=== PATIENT | female | born 1985 | race African-American/Black ===

== ENCOUNTER 2016-08-30 20:48 | Observation (INO) | payer MEDICAID, OTHER ==
[~2016-08-30] VITALS: Ht 165.1 cm; Wt 104.3 kg
[2016-08-30 22:50] LABS: Urine Bilirubin Negative (Negative); Urine Blood Negative /uL (Negative); Urine Color Yellow (Yellow); Urine Glucose Normal (Normal); Urine Ketone Negative (Negative); Urine Nitrite Negative (Negative); Urine RBC <1 /hpf (0 - 4); Urine Squamous Epithelial Cell FEW /hpf (<5); Urine Urobilinogen Normal (Negative); Urine pH 5.5 (5.0-8.0)
[2016-08-30 22:51] LABS: Basophils # (auto) 0 uL; Basophils % (auto) 0.2 % (0.0-2.0); Eosinophils # (auto) 0.3 uL; Eosinophils % (auto) 4.4 % (0.0-7.0); Hematocrit 33.5 % (36.0-46.0); Hemoglobin 11.2 g/dL (12.2-16.2); Lymphocytes # (auto) 2.1 uL; Lymphocytes % (auto) 30.8 % (10.0-50.0); Mean Corpuscular Hemoglobin 28.9 pg (28.0-32.0); Mean Corpuscular Hgb Conc. 33.5 g/dL (32.0-36.0); Mean Corpuscular Volume 86.2 fL (80.0-100.0); Monocytes # (auto) 0.5 uL; Monocytes % (auto) 7.2 % (0.0-12.0); Neutrophils # (auto) 3.9 uL; Neutrophils % (auto) 57.4 % (37.0-80.0); Red Cell Distribution Width 15.8 % (11.6-16.0); White Blood Cell 6.7 10^3/uL (4.4-10.8)
[2016-08-30 22:55] LABS: Partial Thromboplastin Time 26.1 sec (22.64-33.71); Prothrombin Time 10.3 sec (9.37-12.3)
[2016-08-30 22:59] LABS: Albumin 2.7 g/dL (3.4-5.0); BUN/Creatinine Ratio 9.2; Bilirubin, Total 0.2 mg/dL (0.2-1.0); Calcium 8.8 mg/dL (8.5-10.1); Potassium 3.8 mmol/L (3.5-5.1); Total Protein 6.7 g/dL (6.4-8.2); Uric Acid 4.3 mg/dL (2.6-6.0)
[2016-08-30 23:01] LABS: Platelet Count (auto) 124 10^3/uL (140-450)
[2016-08-30] MEDS ORDERED: LABETALOL HCL 200 MG TAB ONE (23:14)
[2016-08-30] MEDS ORDERED: LABETALOL HCL 200 MG TAB PO ONE (23:15)
[2016-08-31] MEDS ORDERED: LABETALOL HCL 200 MG TAB PO ONE (00:30)
[2016-08-31] MEDS ORDERED: hydrALAZINE HCL 20 MG/ML VL ONE (00:59)
[2016-08-31] MEDS ORDERED: hydrALAZINE HCL 20 MG/ML VL IV PRN (01:15)
== END 2016-08-31 08:08 | disposition home or self-care (01) | DRG 566 ==
LOC: LDRP 20:48
PROVIDERS: ADMIT Specialist; ATTEND Specialist
DX: O13.3 Gestational [pregnancy-induced] hypertension without significant proteinuria, third trimester (principal); O12.03 Gestational edema, third trimester; Z3A.28 28 weeks gestation of pregnancy
CPT/HCPCS: 36415; 59025; 76805; 80053; 81001; 81002; 84550; 85025; 85362; 85379; 85610; 85730; 96374; G0378; J0360